=== PATIENT | male | born 2000 | race Caucasian/White ===

== ENCOUNTER 2024-07-28 22:06 | Emergency (ER) | payer OTHER ==
[~2024-07-28] VITALS: Ht 182.8 cm; Wt 64.9 kg
[~2024-07-28 22:06] MED LIST: AMOXIL250 M1 PO; MOTRIN400 MG PO; NKHM
[2024-07-28 22:14] VITALS: BP 135/80
[2024-07-28] MEDS ORDERED: LORazepam 1 MG TAB PO ONE (23:05)
== END 2024-07-29 00:22 | disposition home or self-care (01) ==
LOC: ED 22:06
DX: F41.1 Generalized anxiety disorder (principal); K21.9 Gastro-esophageal reflux disease without esophagitis; R07.89 Other chest pain; R00.2 Palpitations; R55 Syncope and collapse